=== PATIENT | male | born 1985 | race Hispanic/Latino ===

== ENCOUNTER 2023-02-08 08:16 | Emergency (ER) | payer OTHER ==
[~2023-02-08] VITALS: Ht 160 cm; Wt 90.3 kg
[2023-02-08 08:52] LABS: CREATININE 1.2 mg/dL (0.5-1.5); POTASSIUM 3.9 mmol/L (3.5-5.1)
[2023-02-08 08:53] LABS: BASOPHILS % (AUTO) 0.7 % (0.0-5.0); HEMATOCRIT 46.9 % (42-54); LYMPHOCYTES % (AUTO) 15.7 % (21.0-51.0); MEAN CORPUSCULAR HEMOGLOBIN 30.3 pg (27.0-33.0); MEAN CORPUSCULAR HGB CONC 34.3 g/dL (32.0-36.0); MEAN CORPUSCULAR VOLUME 88.3 fL (79-99); MONOCYTES % (AUTO) 6.3 % (3.0-13.0); NEUTROPHILS % (AUTO) 75.8 % (40.0-77.0); PLATELET COUNT (AUTO) 244 K/uL (130-400); RED BLOOD CELL COUNT(AUTO) 5.31 MIL/uL (4.50-6.20); RED CELL DISTRIBUTION WIDTH 12.4 % (11.0-15.5); WHITE BLOOD COUNT (AUTO) 5.4 K/uL (4.8-10.8)
[2023-02-08 08:57] LABS: ALBUMIN 3.7 g/dL (3.5-5.0); TOTAL PROTEIN, SERUM 6.8 g/dL (6.0-8.3)
[2023-02-08] MEDS ORDERED: KETOROLAC 30MG VIAL (30MG/ML) IVP STA (09:52)
[2023-02-08] MEDS ORDERED: ORPHENADRINE CITRATE 30 MG/ML ML IM ONE (10:00)
[2023-02-08] MEDS ORDERED: CYCL5TAB PO (10:49)
[2023-02-08] MEDS ORDERED: NAPR-1084 PO (10:49)
[2023-02-08 10:51] VITALS: BP 142/87
== END 2023-02-08 11:00 | disposition home or self-care (01) ==
LOC: EDH 08:16
DX: S29.011A Strain of muscle and tendon of front wall of thorax, initial encounter (principal); X58.XXXA Exposure to other specified factors, initial encounter; Y93.89 Activity, other specified; Y92.89 Other specified places as the place of occurrence of the external cause; Y99.8 Other external cause status
CPT/HCPCS: 99285; 96374; 71045; 84484; 80053; 85025; 36415; 93005; 96372; J1885; J2360